=== PATIENT | female | born 1980 | race African-American/Black ===

== ENCOUNTER 2025-01-09 20:28 | Inpatient (IN) | payer MEDICAID, OTHER ==
[2025-01-09] MEDS ORDERED: IBUPROFEN 600 MG TAB PO PRN (22:04)
[2025-01-09] MEDS ORDERED: MAGNESIUM HYDROXIDE 2,400 MG/30 ML CUP PO PRN (22:04)
[2025-01-09] MEDS: LORazepam 2 MG/ML INJ IM PRN (22:30)
[2025-01-09] MEDS: flUPHENAZine 2.5 MG/ML (MDV) 10 ML VIAL IM PRN (22:31)
[2025-01-10] MEDS: chlorproMAZINE 25 MG/ML 2 ML AMP IM STA (00:43)
[2025-01-10] MEDS: LORazepam 2 MG/ML INJ IM STA (00:43)
[2025-01-10] MEDS: NICOTINE 14MG/24HR PATCH TRANSDERM SCH (14:16)
[2025-01-10] MEDS: LORazepam 1 MG TAB PO PRN (14:30)
[2025-01-10] MEDS ORDERED: chlorproMAZINE 25 MG TAB PO PRN (15:05)
[2025-01-10] MEDS ORDERED: chlorproMAZINE 25 MG/ML 2 ML AMP IM PRN (15:05)
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
[2025-01-10] MEDS: clonazePAM 1 MG TAB PO PRN (19:17)
[2025-01-10 19:58] LABS: Appearance,Urine Cloudy (Clear); Bacteria,Urine Many /hpf; Bilirubin,Urine Negative (Negative); Blood,Urine Negative (Negative); Color,Urine Colorless; Glucose,Urine (UA) Negative (Negative); Ketones,Urine Negative (Negative); Leukocyte Esterase,Urine Large (Negative); Mucus,Urine Rare /hpf; Nitrite,Urine Positive (Negative); Protein,Urine Negative (Negative); RBC,Urine 5 /hpf (0-5); Squamous Epithelial Cell,Urine 8 /hpf (0-4); Urobilinogen,Urine <2.0 mg/dL (<2.0); WBC,Urine 52 /hpf (0-5)
[2025-01-10 20:00] LABS: Amphetamine Screen,Urine Not Detected (NotDetected); Barbiturate Screen,Urine Not Detected (NotDetected); Benzodiazepines Screen,Urine Detected (NotDetected); Cocaine Screen,Urine Not Detected (NotDetected); Methadone Screen, Urine Not Detected (NotDetected); Opiate Screen,Urine Not Detected (NotDetected); Oxycodone Screen, Urine Not Detected (NotDetected); Phencyclidine Screen,Urine Not Detected (NotDetected); Tricyclic Antidepressant,Urine Not Detected (NotDetected); Urn Cannabinoid Scrn Not Detected (NotDetected)
[2025-01-10] MEDS: OLANZapine 7.5 MG TAB PO SCH (21:29)
[2025-01-10] MEDS: BENZTROPINE MESYLATE 0.5 MG TAB PO SCH (21:29)
[2025-01-10] MEDS: ACETAMINOPHEN TAB 325 MG TAB PO PRN (21:31)
--- NOTE | 2025-01-10 23:44 | P.HPIM ---
History of Present Illness H&P Date: 01/10/25 Chief Complaint: Medical Managment 44 y.o female patient with PMH of bipolar 1 disorder , lupus disorder on Plaquenil 200 mg daily and stimulant use nd currently in remission who is admitted under behavioral unit for management of psychosis. Patient does admit using alcohol occasionally. She does use nicotine and tobacco daily. Prior history of crack use and last use was in January 2024. No other past medical history. Past surgical history : none PE: General: nontoxic, no distress, appears at stated age Derm: warm, dry, intact Head: atraumatic, normocephalic, symmetric Eyes: EOMI, anicteric sclera Mouth: no lip lesion, mucus membranes moist Cardiovascular: S1 S2 reg, no murmur, rubs, or gallops Lungs: CTA bilateral, no rales, no accessory muscle use Abdominal: soft, non-tender to palpataion, no appreciable organomegaly Extremities: no gross muscle atrophy, no edema, no contractures Neuro: Alert, Oriented, CNII-XII grossly intact, gait normal II: Pupils equal and reactive, no RAPD, normal visual field and fundus III, IV, : EOM intact, no gaze preference or deviation V: normal VII: no facial asymmetry VIII: normal hearing to speech Assessment and plan : - Bipolar disorder with manic and psychotic features/stimulant use disorder and currently in remission/nicotine dependence : Managed by behavioral unit Klonopin and Thorazine as needed for anxiety and agitation - Lupus disorder : Continue Plaquenil 200 mg daily CODE STATUS is full code Time spent : 35 min Medications and Allergies Home Medications Medication Instructions Recorded Confirmed Type Baclofen [Lioresal] 20 mg PO BID 01/10/25 01/10/25 History Benztropine Mesylate [Cogentin] 0.5 mg PO TID 01/10/25 01/10/25 History DULoxetine HCL [Cymbalta] 60 mg PO BID 01/10/25 01/10/25 History Hydroxychloroquine Sulfate 200 mg PO DAILY@0800 01/10/25 01/10/25 History [Plaquenil] OLANZapine [ZyPREXA] 15 mg PO HS 01/10/25 01/10/25 History OXcarbazepine [Trileptal] 600 mg PO BID 01/10/25 01/10/25 History Paliperidone [Paliperidone ER] 3 mg PO DAILY 01/10/25 01/10/25 History Paliperidone [Paliperidone ER] 6 mg PO HS 01/10/25 01/10/25 History Prazosin [Minipress] 1 mg PO HS 01/10/25 01/10/25 History Pregabalin [Lyrica] 100 mg PO TID 01/10/25 01/10/25 History QUEtiapine FUMARATE [SEROquel] 200 mg PO HS 01/10/25 01/10/25 History SUMAtriptan succinate [Imitrex] 50 mg PO DAILY 01/10/25 01/10/25 History Topiramate [Topamax] 100 mg PO DAILY 01/10/25 01/10/25 History busPIRone HCl [Buspar] 10 mg PO TID 01/10/25 01/10/25 History clonazePAM [KlonoPIN] 1 mg PO BID PRN 01/10/25 01/10/25 History traMADol HCL 50 mg PO DAILY 01/10/25 01/10/25 History Allergies Allergy/AdvReac Type Severity Reaction Status Date / Time haloperidol [From Haldol] Allergy Unknown Unknown Verified 01/10/25 13:52 ketorolac [From Toradol] Allergy Unknown Verified 01/10/25 13:52 Sulfa (Sulfonamide Allergy Unknown Verified 01/10/25 13:52 Antibiotics) haldol decanoate Allergy Unknown Uncoded 01/10/25 13:52 Physical Exam Vitals: Vital Signs Temp Pulse Resp BP Pulse Ox 01/10/25 18:27 98.0 F 102 H 16 117/72 01/10/25 14:15 98.0 F 88 18 128/82 98 Intake and Output 01/10/25 01/10/25 01/10/25 06:59 14:59 22:59 Other: Weight 120.066 kg Results Labs: Abnormal Lab Results - Last 24 Hours (Table) 01/10/25 Range/Units 19:15 Urine Appearance Cloudy H (Clear) Urine Nitrite Positive H (Negative) Ur Leukocyte Esterase Large H (Negative) Urine WBC 52 H (0-5) /hpf Urine WBC Clumps Few H (None) /hpf Ur Squamous Epith Cells 8 H (0-4) /hpf Urine Bacteria Many H (None) /hpf Urine Mucus Rare H (None) /hpf U Benzodiazepines Scrn Detected H (NotDetected)
[2025-01-11] MEDS: DULoxetine HCL 60 MG CAPSULE.DR PO SCH (09:35)
[2025-01-11] MEDS: PREGABALIN 100 MG CAP PO SCH (10:41)
[2025-01-11] MEDS: BACLOFEN 10 MG TAB PO SCH (10:41)
[2025-01-11] MEDS: TOPIRAMATE 25 MG TAB PO SCH (11:12)
--- NOTE | 2025-01-11 11:24 | P.PN ---
Progress Note - Text Progress Note Date: 01/11/25 Interval History: Patient was seen in her room and was directable and agreeable to speak with wr iter in the room. Patient appeared less confused and bizarre. She was adherent with her psychotropic medications. She admits to a history of psychosis that is triggered when stressed. She reports recent stressor of having to see her ex and his new , her oldest daughter whom she does not get along with at her youngest daughter graduation last week. Patient was able to identify both a friend and an advocate as her support network at home she feels comfortable with speaking to when stressed. She also mentions being in a fpc being stressful at times for her. She was very remorseful for her past events overnight the other night, unable to recall these events. At this time patient denies any suicidal or homicidal ideations, intent or plan. Patient denies any auditory, visual hallucinations and denies any paranoia or delusions. Patient denies any side effects from the medications and has been compliant with meds. Mental Status Exam: General Appearance: Patient appears to be stated age is alert, directable, and cooperative. She has questionable grooming and hygiene Behavior: Patient is calmly seated without any agitated behavior. Speech: Patient's speech is fluent and nonpressured. Mood/Affect: Mood is improving mildly, affect is congruent and constricted. Suicidality/Homicidality: Patient denies having any suicidal or homicidal ideation intent or plan. Perceptions: Patient denies any visual hallucinations and denies any auditory hallucinations Though content/process: There is no evidence of any delusional thought content and thought process is linear and goal-directed. Memory and concentration: AOX3, grossly intact for the purposes of this session Judgment and insight: Improving mildly Assessment Bipolar 1 disorder, current episode manic with psychotic features Anxiety, unspecified Stimulant use disorder, in remission Nicotine dependence Plan: -Patient continues to meet criteria for inpatient psychiatric admission for symptom stabilization and safety. Patient has not signed adult voluntary form and medication consent and was placed in patient's chart. -Medications: Resume Lyrica 100 mg daily for anxiety, start Topamax 50 mg daily for weight gain, continue Zyprexa 15 mg at bedtime for psychosis, Cogentin 0.5 mg twice daily for EPS, Cymbalta 60 mg daily for depression -When necessary Klonopin and Thorazine for agitation/aggression. -Labs: UA was positive for UTI however repeat UA with reflex to culture was ordered. Other labs completed prior to arrival were reviewed -NRT - nicotine patch -SW on board for discharge planning. Encouraged the patient to participate in milieu. Currently awaiting deferral with community manager and court date.
[2025-01-11] MEDS: hydrOXYzine HCL 10 MG TAB PO SCH (11:38)
[2025-01-11 14:07] LABS: Appearance,Urine Clear (Clear); Bacteria,Urine Many /hpf; Bilirubin,Urine Negative (Negative); Blood,Urine Negative (Negative); Budding Yeast,Urine Occasional /hpf; Color,Urine Colorless; Glucose,Urine (UA) Negative (Negative); Ketones,Urine Negative (Negative); Leukocyte Esterase,Urine Trace (Negative); Mucus,Urine Rare /hpf; Nitrite,Urine Negative (Negative); PH, Urine 6.5 (5.0-8.0); Protein,Urine Negative (Negative); RBC,Urine 2 /hpf (0-5); Specific Gravity,Urine 1.009 (1.001-1.035); Squamous Epithelial Cell,Urine 9 /hpf (0-4); Urobilinogen,Urine <2.0 mg/dL (<2.0); WBC,Urine 4 /hpf (0-5)
[2025-01-11] MEDS: HYDROCORTISONE 1% CREAM 30 GM TUBE TOPICAL PRN (18:20)
[2025-01-11] MEDS: traZODone HCL 50 MG TAB PO ONE (21:15)
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
[2025-01-12] MEDS: PREGABALIN 100 MG CAP PO SCH (16:03)
[2025-01-12] MEDS: traZODone HCL 50 MG TAB PO PRN (20:43)
--- NOTE | 2025-01-13 13:59 | P.PN ---
Progress Note - Text Progress Note Date: 01/13/25 Dictation was produced using [employer] dictation software. Please excuse any grammatical, word or spelling errors. Interval history: Patient was seen in her room and was directable and agreeable to speak with the real estate underwriter in the office for psychiatric follow-up. The patient states that she is feeling "better", states that she is was better compared to admission. States that she is "sleepy." She states that depression and anxiety are at the low to moderate side, she rated depression at 2/10, and anxiety at 6/10, states that she is anxious about what will happen when he leaves. States that her children likes her, and they are supportive. States that she has one grandchild. She admitted to good sleep last night. It is reported that she slept 6 hours overnight. She admitted to good appetite. She denied any current SI/HI or self harm. Denied any AVH, or paranoia. She has been compliant with her medications and she denied any side effects. She denied any muscle stiffness, rigidity, abnormal movements, or drooling. She has no other concerns at this time. Mental Status Exam: General Appearance: Patient appears to be stated age is alert, directable, and cooperative. She is overweight Behavior: Patient is calmly seated without any agitated behavior. Speech: Patient's speech is fluent and nonpressured. Mood/Affect: Mood is improving mildly, affect is congruent and constricted. Suicidality/Homicidality: Patient denies having any suicidal or homicidal ideation intent or plan. Perceptions: Patient denies any visual hallucinations and denies any auditory hallucinations Though content/process: There is no evidence of any delusional thought content and thought process is linear and goal-directed. Memory and concentration: AOX3, grossly intact for the purposes of this session Judgment and insight: Improving mildly Assessment Bipolar 1 disorder, current episode manic with psychotic features Anxiety, unspecified Stimulant use disorder, in remission Nicotine dependence Assessment/Plan: Continue with current diagnosis. Patient continues to meet criteria for inpatient psychiatric admission for symptom stabilization and safety. Patient will be maintained on current psychotropic medication regimen which include Lyrica 100 mg p.o. 3 times daily, Topamax 50 mg p.o. daily, Zypr exa 15 mg p.o. at bedtime, Cogentin 0.5 mg p.o. twice daily, and Cymbalta 60 mg p.o. daily. Monitor for medication compliance and for any psychotropic medication side effects. Psychoeducation was provided, risk, benefit and side effect discussed, patient denied any current side effects, denied any muscle stiffness, rigidity, abnormal movement, or drooling. Will continue to monitor ongoing response to treatment. Encouraged participation in milieu.
[2025-01-13] MEDS: MAG HYDROX/AL HYDROX/SIMETH 355 ML BOTTLE PO PRN (16:31)
--- NOTE | 2025-01-14 14:10 | P.PN ---
Progress Note - Text Progress Note Date: 01/14/25 Dictation was produced using ([employer] dictation software. Please excuse any grammatical, word or spelling errors. Interval history: Patient was seen in the hallway and was directable and agreeable to speak with the mortgage underwriter in the office for psychiatric follow-up. The patient states that she is doing well today. States that she slept well last night. It is reported that she slept at least 6 hours last night. States that she has been eating her meals, and reported her appetite as "healthy." States that depression and anxiety to be at the low to moderate side, she rated depression at 2/10, and anxiety at 5/10. She denied any current SI/HI or self harm. She denied any current AVH. She has been taking her medications, she denied any current side effects, states that she has been having been feeling itchy for few days, and has been using hydrocortisone cream without help. State that she does not see any rash. She denied any medication side effects, she denied any muscle stiffness, rigidity, abnormal movement or drooling. She states that she has been active, and attended groups, and she is tending to her ADL. Mental Status Exam: General Appearance: Patient appears to be stated age is alert, directable, and cooperative. She is overweight Behavior: Patient is calmly seated without any agitated behavior. Speech: Patient's speech is fluent and nonpressured. Mood/Affect: Mood is improving mildly, affect is congruent and constricted. Suicidality/Homicidality: Patient denies having any suicidal or homicidal ideation intent or plan. Perceptions: Patient denies any visual hallucinations and denies any auditory hallucinations Though content/process: There is no evidence of any delusional thought content and thought process is linear and goal-directed. Memory and concentration: AOX3, grossly intact for the purposes of this session Judgment and insight: Improving mildly Assessment Bipolar 1 disorder, current episode manic with psychotic features Anxiety, unspecified Stimulant use disorder, in remission Nicotine dependence Assessment/Plan: Continue with current diagnosis. Patient continues to meet criteria for inpatient psychiatric admission for symptom stabilization and safety. Patient will be maintained on current psychotropic medication regimen which include Lyrica 100 mg p.o. 3 times daily, Topamax 50 mg p.o. daily, Zyprexa 15 mg p.o. at bedtime, Cogentin 0.5 mg p.o. twice daily, and Cymbalta 60 mg p.o. daily. Monitor for medication compliance and for any psychotropic medication side effects. Psychoeducation was provided, risk, benefit and side effect discussed, patient denied any current side effects, denied any muscle stiffness, rigidity, abnormal movement, or drooling. Patient reported itching in her abdominal area, denied any rash, has been using hydrocortisone cream with limited benefit, asked RN to take a look at it and may consider IM consult if needed. Will continue to monitor ongoing response to treatment. Encouraged participation in milieu.
[2025-01-14 23:00] VITALS: RESP 16
[2025-01-15 08:06] VITALS: BP 105/74; PULSE 94; TEMP 97.6
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
== END 2025-01-15 11:43 | disposition home or self-care (01) | DRG 750 ==
LOC: 3MHU 21:59
PROVIDERS: ADMIT Psychiatry & Neurology Psychiatry; ATTEND Psychiatry & Neurology Psychiatry
DX: F31.2 Bipolar disorder, current episode manic severe with psychotic features (principal); F15.11 Other stimulant abuse, in remission; F17.200 Nicotine dependence, unspecified, uncomplicated; F23 Brief psychotic disorder; F41.9 Anxiety disorder, unspecified; F43.10 Post-traumatic stress disorder, unspecified; S06.0XAA Concussion with loss of consciousness status unknown, initial encounter; Z56.0 Unemployment, unspecified; Z59.01 Sheltered homelessness; Z79.899 Other long term (current) drug therapy; Z81.8 Family history of other mental and behavioral disorders; Z87.820 Personal history of traumatic brain injury; Z91.148 Patient's other noncompliance with medication regimen for other reason; Z91.51 Personal history of suicidal behavior
CPT/HCPCS: 80306; 81001; 81025